=== PATIENT | female | born 1955 ===

== ENCOUNTER 2024-04-02 11:17 | Emergency (ER) | payer MEDICARE, MEDICAID, SELFPAY ==
--- NOTE | ~2024-04-02 | CT_ITS ---
EXAMINATION: CT ABDOMEN AND PELVIS WITHOUT CONTRAST CLINICAL INFORMATION: Right ureteral stone. COMPARISON: None available. TECHNIQUE: Multidetector volumetric imaging was performed from the superior aspect of the liver through the pubic symphysis. Sagittal and coronal reformatted images were obtained on the technologist's workstation. This CT examination was performed using dose optimization techniques as appropriate, variously including the following: *Automated exposure control *Adjustment of mA and/or kV according to patient size (this includes techniques or standardized protocols for targeted exams where dose is matched to indication/reason for exam; i.e. extremities or head) *Use of iterative reconstruction technique DLP: 1226 mGy-cm FINDINGS: LUNG BASES: The visualized lung bases are unremarkable. LIVER, GALLBLADDER, AND BILIARY TREE: The liver is normal in size, shape, and attenuation. No focal hepatic lesion or biliary ductal dilatation is present. Status post cholecystectomy. PANCREAS: Unremarkable. SPLEEN: Unremarkable. ADRENAL GLANDS: Unremarkable. KIDNEYS AND URETERS: The kidneys are normal in size, shape, and attenuation. No hydronephrosis, hydroureter, or calculi seen. No perinephric stranding. BLADDER: Unremarkable. Abdominal wall/GASTROINTESTINAL TRACT: Diastases of the anterior abdominal wall with herniation of nonobstructed large and small bowel loops. Surgical suture line at the sigmoid colon intact. No acute abnormality of the bowel. No bowel obstruction. No bowel wall thickening or edema. Enlarged moderate volume stool throughout the colon. The appendix is nonvisualized. There is no inflammatory change. Stomach unremarkable. LYMPH NODES: Normal. VASCULAR: Vascular calcifications CT abdomen and pelvis. There is no aneurysm. PELVIC VISCERA: Uterus is anteverted. No adnexal abnormality. OSSEOUS STRUCTURES: Multilevel degenerative spondylosis spine. CT/CT abdomen pelvis wo IV con IMPRESSION: 1. No acute abnormality CT scan abdomen pelvis. 2. No urinary calculi or hydronephrosis. 3. Status post cholecystectomy. 4. Diastases of the anterior abdominal wall with herniation of nonobstructed large and small bowel loops. Fleischner guidelines were followed. Electronically signed by: Kwan Lopez MD 04/02/2024 09:59 PM [facility]
[2024-04-02 11:21] VITALS: BP 137/83; PULSE 82; RESP 16; TEMP 36.4; O2SAT 98; BMI 37.9
--- NOTE | 2024-04-02 11:21 | ED.GENADULT ---
HPI - General Adult General Chief complaint: Urogenital-Female Stated complaint: 01/29 fall in [place]-?UTI Time Seen by Provider: 04/02/24 18:13 Source: patient Limitations: no limitations History of Present Illness ED Provider: Liliana Guido PA-C HPI narrative: 69-year-old female with a history of recurrent UTIs, presents with dysuria x1 month. Patient states she is new to the area she just moved from [place]. She does not have a primary care yet. Associated burning with urination, and suprapubic discomfort. Associated low back pain. Denies nausea, vomiting, fever. No history of kidney stones. Related Data Previous Rx's ?Medication ?Instructions ?Recorded cephalexin 500 mg capsule 500 mg PO Q12H #14 caps 04/02/24 ketorolac 10 mg tablet 10 mg PO Q6H PRN pain #20 tabs 04/02/24 Allergies Allergy/AdvReac Type Severity Reaction Status Date / Time No Known Allergies Allergy Verified 04/02/24 11:25 Review of Systems Review of Systems: Yes all other systems are reviewed and are negative Constitutional: Constitutional: Denies fatigue and Denies fever(s) Cardiovascular: Cardiovascular: Denies chest pain and Denies dyspnea Respiratory: Respiratory: Denies dyspnea Gastrointestinal: Gastrointestinal: Reports abdominal pain, Denies nausea and Denies vomiting Genitourinary: Genitourinary: Reports dysuria Musculoskeletal: Musculoskeletal: Reports back pain Endocrine: Endocrine: Denies fatigue [facility] Past Medical History Attestation statement: The following information was validated with the patient. Social History Social History Smoked in Last 30 Days: No Use of substances other than those prescribed or required for medical reasons: No Advance Directives: No Advance Directives Information Provided: No Do you have a plan to hurt others: No Plan Patient : No Physical Exam ED Vital Signs: Vital Signs - 24 hr 04/02/24 11:21 04/02/24 17:51 04/02/24 19:44 Temperature 97.6 F 97.8 F 97.7 F Pulse Rate 82 59 54 Respiratory Rate 16 16 18 Blood Pressure 137/83 155/82 H 166/56 H Pulse Oximetry 98 97 99 Oxygen Delivery Method Room Air Room Air Room Air 04/02/24 20:59 04/02/24 22:53 Temperature 97.6 F Pulse Rate 56 Respiratory Rate 16 20 Blood Pressure 148/72 H Pulse Oximetry 97 Oxygen Delivery Method Room Air BMI result Body Mass Index 37.9 Const Other: Alert, overall well-appearing Orientation/consciousness: patient oriented x3 Resp Other: Nonlabored respiration Cardio Other: Normal peripheral perfusion GI Other: Abdomen is soft, nondistended obese, mild tenderness over suprapubic region, no guarding Back/Spine/Pelvis Other: No CVA tenderness Skin Other: Warm dry no rash Neuro General: patient oriented x3, no focal motor deficits and CN's II-XI intact bilaterally Psych Other: Calm cooperative Course Course Course Narrative: This is a Rapid Medical Examination (RME) performed by Yobany Nguyen PA-C in triage. Full HPI, ROS, assessment and treatment plan per primary provider in the Main ED. 69 yo female here for eval of urinary freq, dysuria, bladder since end of January. admits to recurring UTIs. reports evacuating [place] in the beginning of February and has been unable to establish care with a physician since moving to [place]. Plan: labs, UA Medications Administered Discontinued Medications Generic Name Dose Route Start Last Admin Trade Name Freq PRN Reason Stop Dose Admin Cephalexin HCl 500 mg 04/02/24 18:17 04/02/24 18:22 Cephalexin 500 Mg Capsule PO 04/02/24 18:18 500 mg ONCE ONE Administration Ketorolac Tromethamine 15 mg 04/02/24 18:34 04/02/24 19:19 Ketorolac Tromethamine 15 Mg/Ml Vial IM 04/02/24 18:35 15 mg ONCE ONE Administration Medical Decision Making Medical Decision Making [facility] Narrative: 69-year-old female with a history of recurrent UTIs, presents with dysuria x1 month. Patient states she is new to the area she just moved from [place]. She does not have a primary care yet. Associated burning with urination, and suprapubic discomfort. Associated low back pain. Denies nausea, vomiting, fever. No history of kidney stones. Problem: Recurrent UTIs History: Per patient I have considered the following differential diagnoses: UTI, pyelonephritis, obstructing kidney stone, urosepsis Plan: Given concurrent back pain I am considering pyelo versus renal colic. I do not believe that she has had either for a month. Screening labs including the urinalysis were already obtained from triage, she does have a UTI. Given associated pain I will scan her. Giving Keflex and Toradol. I have independently reviewed the following tests: Labs: Slight leukocytosis, not anemic, no electrolyte abnormality, urine is infected CT abdomen and pelvis: CT/CT abdomen pelvis wo IV con IMPRESSION: 1. No acute abnormality CT scan abdomen pelvis. 2. No urinary calculi or hydronephrosis. 3. Status post cholecystectomy. 4. Diastases of the anterior abdominal wall with herniation of nonobstructed large and small bowel loops. Fleischner guidelines were followed. Electronically signed by: Kwan Lopez MD 04/02/2024 09:59 PM [facility] Lab Data 04/02/24 11:42 04/02/24 11:42 Labs: Lab Results 04/02/24 04/02/24 Range/Units 11:42 14:08 WBC 13.0 H (4.8-10.8) X10*3/uL RBC 4.03 L (4.20-5.50) X10*6/uL Hgb 12.9 (12.0-16.0) g/dl Hct 37.0 (37.0-47.0) % MCV 91.8 (80.0-98.0) fL MCH 32.0 (27.0-33.0) pg MCHC 34.9 (31.0-35.0) g/dl RDW 14.2 (11.0-16.0) % Plt Count 230 (160-400) X10*3/uL MPV 10.9 (9.4-12.3) fL Immature Gran % (Auto) 0.5 H (0.0-0.4) % Neut % (Auto) 70.6 (45-73) % Lymph % (Auto) 20.6 (20-40) % [place] % (Auto) 6.8 (2-11) % Eos % (Auto) 1.0 (0-4) % Baso % (Auto) 0.5 (0-2) % Lymph # (Auto) 2.7 (1.2-4.9) X10*3/uL [place] # (Auto) 0.9 (0.1-1.2) X10*3/uL Eos # (Auto) 0.1 (0.0-0.4) X10*3/uL Baso # (Auto) 0.1 (0.0-0.2) X10*3/uL Abs Immat Gran (auto) 0.06 H (0.00-0.03) X10*3/uL Absolute Neuts (auto) 9.2 H (2.0-8.3) x10*3/uL Absolute Nucleated RBC 0.000 (0.0-0.012) X10*3/uL Nucleated RBC % (auto) 0.0 (0.0-0.2) /100WBC Sodium 143 (135-145) mmol/L Potassium 3.8 (3.3-5.1) mmol/L Chloride 109 H (96-108) mmol/L Carbon Dioxide 24 (22-29) mmol/L Anion Gap 14 (12-20) BUN 30 H (9-16) mg/dL Creatinine 0.88 (0.5-1.4) mg/dL Estim Creat Clear Calc 75.5 Estimated GFR > 60 Random Glucose 76 (60-115) mg/dL Calcium 9.5 (8.4-10.2) mg/dL Magnesium 2.0 (1.6-2.6) mg/dL Total Bilirubin 0.5 (0.0-1.0) mg/dL AST 29 (5-31) U/L ALT 32 H (0-31) U/L Alkaline Phosphatase 94 (39-117) U/L Total Protein 7.1 (6.5-8.0) g/dL Albumin 4.0 (3.5-5.0) g/dL Lipase 37 (8-78) U/L Urine Color Yellow Urine Appearance Cloudy Urine pH 6.0 (5.0-9.0) Ur Specific [place] 1.025 (1.005-1.025) Urine Protein Negative (Neg-Trace) mg/dL Urine Glucose (UA) Negative (Negative) mg/dL Urine Ketones Negative (Negative) mg/dL Urine Blood Moderate (2+) H (Negative) Urine Nitrite Positive H (Negative) Ur Leukocyte Esterase Moderate (2+) H (Negative) Urine RBC 11-20 H (0-2) /HPF Urine WBC >50 H (0-5) /HPF Ur Squamous Epith Cells 6-10 (0-2) /HPF Urine Bacteria 4+ (None Seen) Hyaline Casts 0-2 (0-2) /LPF Discharge Plan Discharge Clinical Impression: Urinary tract infection Patient Disposition: Home, Self-Care Instructions: Urinary Tract Infection in Women (ED) Additional Instructions: You were found to have a urinary tract infection, there were no other lab abnormalities in the CT scan was normal. See home care instructions. Use the cephalexin as directed, this is an antibiotic. Use the ketorolac as needed for pain. Prescriptions: New cephalexin 500 mg capsule 500 mg PO Q12H Qty: 14 0RF ketorolac 10 mg tablet 10 mg PO Q6H PRN (Reason: pain) Qty: 20 0RF Rx Instructions: maximum total duration of 5 days from all oral, intranasal, or parenteral formulations Print Language: Hong Konger
[2024-04-02 11:48] LABS: MANUAL DIFF FLAG NO
[2024-04-02 11:50] LABS: Basophils Absolute Auto 0.1 X10*3/uL (0.0-0.2); Basophils Percent Auto 0.5 % (0-2); Eosinophils Absolute Auto 0.1 X10*3/uL (0.0-0.4); Hemoglobin 12.9 g/dl (12.0-16.0); Imm Gran Abs Auto 0.06 X10*3/uL (0.00-0.03); Imm Gran Pct Auto 0.5 % (0.0-0.4); Lymphocytes Absolute Auto 2.7 X10*3/uL (1.2-4.9); Lymphocytes Percent Auto 20.6 % (20-40); Mean Corpuscular HGB Conc 34.9 g/dl (31.0-35.0); Mean Corpuscular Volume 91.8 fL (80.0-98.0); Mean Platelet Volume 10.9 fL (9.4-12.3); Monocytes Absolute Auto 0.9 X10*3/uL (0.1-1.2); Monocytes Percent Auto 6.8 % (2-11); Neutrophils Absolute Auto 9.2 x10*3/uL (2.0-8.3); Neutrophils Percent Auto 70.6 % (45-73); Platelet Count 230 X10*3/uL (160-400); Red Blood Count 4.03 X10*6/uL (4.20-5.50); Red Cell Distribution Width 14.2 % (11.0-16.0)
[2024-04-02 12:06] LABS: Alanine Aminotransferase 32 U/L (0-31); Alkaline Phosphatase 94 U/L (39-117); Anion Gap 14 (12-20); Aspartate Amino Transferase 29 U/L (5-31); Bilirubin Total 0.5 mg/dL (0.0-1.0); Blood Urea Nitrogen 30 mg/dL (9-16); Calcium 9.5 mg/dL (8.4-10.2); Carbon Dioxide 24 mmol/L (22-29); Chloride 109 mmol/L (96-108); Creatinine Clr Calc Pharmacy 75.5; Estimated Glomerular Filt Rate > 60; Glucose Random 76 mg/dL (60-115); Lipase 37 U/L (8-78); Potassium 3.8 mmol/L (3.3-5.1); Sodium 143 mmol/L (135-145); Total Protein 7.1 g/dL (6.5-8.0)
[2024-04-02 14:18] LABS: Appearance Urine Cloudy; Color Urine Yellow; Glucose Urine UA Negative (Negative); Leukocyte Esterase Urine Moderate (2+) (Negative); Nitrite Urine Positive (Negative); Specific Gravity - Urine 1.025 (1.005-1.025); UMIC TRIGGER UACC YES; Urine Blood Moderate (2+) (Negative); Urine Ketones Negative (Negative); Urine Protein Negative (Neg-Trace)
[2024-04-02 14:28] LABS: Bacteria Urine 4+ (None Seen); Hyaline Casts Urine 0-2 /LPF (0-2); UACC Culture Trigger YES; WBC Urine >50 /HPF (0-5)
[2024-04-02 17:51] VITALS: BP 155/82; PULSE 59; RESP 16; TEMP 36.6; O2SAT 97
[2024-04-02] MEDS: cephALEXin 500 MG CAPSULE PO (18:22)
[2024-04-02] MEDS: Ketorolac Tromethamine 15 MG/ML VIAL IM (19:19)
--- NOTE | 2024-04-02 19:22 | PC.NURSE ---
Pt a&ox4, no signs of distress. Pt lying in bed, watching TV. Pt reports 9/10 back pain. Pt denies medication allergies Pt medicated per mar. Plan of care ongoing.
[2024-04-02 19:44] VITALS: BP 166/56; PULSE 54; RESP 18; TEMP 36.5; O2SAT 99
[2024-04-02 20:59] VITALS: RESP 16
[2024-04-02 22:53] VITALS: BP 148/72; PULSE 56; RESP 20; TEMP 36.4; O2SAT 97
[2024-04-02 23:25] VITALS: BP 148/72; PULSE 56; RESP 20; TEMP 36.4; O2SAT 97
== END 2024-04-02 23:27 | disposition home or self-care (01) ==
PROVIDERS: Physician Assistant Medical; Emergency Provider Emergency Medicine Emergency Medical Services
DX: N39.0 Urinary tract infection, site not specified (principal); Z87.440 Personal history of urinary (tract) infections
CPT/HCPCS: 36415; 74176; 80053; 81001; 83690; 83735; 85025; 87086; 87088; 87186; 96372; 99284; J1885